=== PATIENT | female | born 1940 | race Asian ===

== ENCOUNTER 2019-02-07 13:46 | Emergency (ER) | payer MEDICARE ==
[2019-02-07] MEDS ORDERED: ASPIRIN 81 MG TABLET, CHEWABLE PO ONE (14:15)
--- NOTE | 2019-02-07 14:15 | ER Document Report ---
ED Medical Screen (RME) - General Chief Complaint: High Blood Pressure Stated Complaint: BLOOD PRESSURE ISSUES Time Seen by Provider: 02/07/19 14:10 Mode of Arrival: Ambulatory Information source: Patient Notes: 78-year-old female presented to ED for complaint of high blood pressure. She just saw the doctor 2 days ago and was started on multiple blood pressure medications and oxybutynin for her bladder. She has a scheduled appointment on Saturday for a physical and blood work. states she got very upset with him today and her blood pressure went higher so he came to the emergency room. Is not taking any of her medications that she has picked up from the pharmacist. She states she had a heavy feeling in her chest for "awhile". She states she told her primary doctor and he is going to send her for a stress test. She states the blood pressure is higher than it has been so they went to the pharmacist and they rechecked the blood pressure and they told her she should go to the emergency room. She states her blood pressure is usually between 150- 175. She states she smokes 3 cigarettes a day, alcohol daily as a wine and 2 cocktails but does not use any illicit drugs. I have greeted and performed a rapid initial assessment of this patient. A comprehensive ED assessment and evaluation of the patient, analysis of test results and completion of medical decision making process will be conducted by an additional ED providers. - Related Data Allergies/Adverse Reactions: No Known Allergies Allergy (Unverified 02/07/19 14:09) Physical Exam - Vital signs Vitals: Temp Pulse Resp BP Pulse Ox 97.8 F 66 16 232/78 H 100 02/07/19 13:48 02/07/19 13:48 02/07/19 13:48 02/07/19 13:48 02/07/19 13:48 Course - Vital Signs Vital signs: Temp Pulse Resp BP Pulse Ox 97.8 F 66 16 232/78 H 100 02/07/19 13:48 02/07/19 13:48 02/07/19 13:48 02/07/19 13:48 02/07/19 13:48
[2019-02-07 15:29] LABS: ABSOLUTE BASOPHILS # (AUTO) 0.1 10^3/uL (0.0-0.2); ABSOLUTE EOSINOPHILS # (AUTO) 0.2 10^3/uL (0.0-0.6); ABSOLUTE LYMPHOCYTES (AUTO) 1.8 10^3/uL (0.5-4.7); ABSOLUTE MONOCYTES (AUTO) 0.3 10^3/uL (0.1-1.4); ABSOLUTE NEUT (AUTO) 4.5 10^3/uL (1.7-8.2); BASOPHILS % (AUTO) 0.9 % (0-2); EOSINOPHILS % (AUTO) 2.9 % (0-6); HEMATOCRIT 37.1 % (36.0-47.0); MEAN CORPUSCULAR HEMOGLOBIN 28.9 pg (27.0-33.4); MEAN CORPUSCULAR HGB CONC 32.4 g/dL (32.0-36.0); MEAN CORPUSCULAR VOLUME 89 fl (80-97); PLATELET COUNT 289 10^3/uL (150-450); RED BLOOD COUNT 4.16 10^6/uL (3.72-5.28); SEGMENTED NEUTROPHILS % (AUTO) 65.2 % (42-78); TOTAL CELLS COUNTED % (AUTO) 100 %; WHITE BLOOD COUNT 6.9 10^3/uL (4.0-10.5)
[2019-02-07 15:36] LABS: ALBUMIN 4.2 g/dL (3.5-5.0); ALKALINE PHOSPHATASE 92 U/L (38-126); ANION GAP 6 (5-19); ASPARTATE AMINO TRANSFERASE 25 U/L (14-36); BILIRUBIN,DIRECT 0.2 mg/dL (0.0-0.4); BILIRUBIN,TOTAL 0.7 mg/dL (0.2-1.3); BLOOD UREA NITROGEN 20 mg/dL (7-20); CALCIUM 9.3 mg/dL (8.4-10.2); CARBON DIOXIDE 30 mmol/L (22-30); CHLORIDE 103 mmol/L (98-107); CREATINE KINASE 116 U/L (30-135); GLUCOSE 106 mg/dL (75-110); POTASSIUM 4.2 mmol/L (3.6-5.0); TOTAL PROTEIN 7.5 g/dL (6.3-8.2)
[2019-02-07 15:47] LABS: CREATINE KINASE MB 1.76 ng/mL (<4.55); NT PRO BNP 282 pg/mL (<450)
[2019-02-07 15:48] LABS: TROPONIN I < 0.012 ng/mL
--- NOTE | 2019-02-07 15:51 | RADIOLOGY REPORT (SQ) ---
EXAM DESCRIPTION: CHEST 2 VIEWS COMPLETED DATE/TIME: 02/07/2019 3:34 pm REASON FOR STUDY: chest pain htn COMPARISON: None. EXAM PARAMETERS: NUMBER OF VIEWS: two views TECHNIQUE: Digital Frontal and Lateral radiographic views of the chest acquired. RADIATION DOSE: NA LIMITATIONS: none FINDINGS: LUNGS AND PLEURA: No opacities, masses or pneumothorax. No pleural effusion. MEDIASTINUM AND HILAR STRUCTURES: 8 cm hiatus hernia. HEART AND VASCULAR STRUCTURES: Heart upper limits of normal size. No evidence for failure. BONES: No acute findings. HARDWARE: None in the chest. OTHER: No other significant finding. IMPRESSION: NO ACUTE RADIOGRAPHIC FINDING IN THE CHEST. TECHNICAL DOCUMENTATION: JOB ID: [id number] 2010 [facility]- All Rights Reserved Reading location - IP/workstation name: [email or web address]
[2019-02-07 16:00] LABS: APPEARANCE,URINE SLIGHTLY-CLOUDY; BILIRUBIN,URINE NEGATIVE (NEGATIVE); COLOR,URINE YELLOW; GLUCOSE, URINE NEGATIVE (NEGATIVE); KETONES,URINE NEGATIVE (NEGATIVE); PROTEIN,URINE NEGATIVE (NEGATIVE); UROBILINOGEN,URINE NEGATIVE mg/dL (<2.0)
[2019-02-07] MEDS ORDERED: ATENOLOL 50 MG TABLET PO ONE (16:18)
[2019-02-07] MEDS ORDERED: LISINOPRIL 10 MG TABLET PO ONE (16:18)
[2019-02-07] MEDS ORDERED: CLONIDINE HCL 0.1 MG TABLET PO ONE (16:19)
--- NOTE | 2019-02-07 17:01 | ER Document Report ---
ED Blood Pressure Problem - General Chief Complaint: High Blood Pressure Stated Complaint: BLOOD PRESSURE ISSUES Time Seen by Provider: 02/07/19 14:10 Primary Care Provider: BLAYNE DE LA CRUZ DO [Primary Care Provider] - Follow up as needed Mode of Arrival: Ambulatory Information source: Patient, Relative - brother Notes: Ms. Ho is a 78-year-old female presenting to the ED for elevated blood pressure. Patient states that she stopped all her medications including multiple blood pressure medications approximately 5 years ago. Over the past 2 to 3 weeks, she is been experiencing pressure to her chest. She denies any actual chest pain but describes it as "a weight on my chest". Patient was finally amenable to seeing a doctor which was a first doctor she had seen in over 2 years after her brother convinced her. She was evaluated and reinitiated on some antihypertensives specifically atenolol, lisinopril and clonidine. Patient's brother went to go tile picker the medications earlier today and when he brought them home to her, she stated that she was not feeling well. After checking her blood pressure at home, they noticed that blood pressure readings were 250 systolic. They are unsure if their home machine was broken so they went to [facility] where they got similar numbers. Patient presenting to the ED for further evaluation of her blood pressure meds. Of note, she did not take any of her oral antihypertensives that were prescribed to her. Patient denies any actual chest pain, shortness of breath, nausea, vomiting or diarrhea. She denies any lower extremity edema. No dyspnea with exertion. Per brother, the patient is scheduled for an outpatient stress test by her primary care doctor. - HPI Patient complains to provider of: High blood pressure - Related Data Allergies/Adverse Reactions: No Known Allergies Allergy (Unverified 02/07/19 14:09) Past Medical History - General Information source: Patient - Social History Smoking Status: Current Every Day Smoker Chew tobacco use (# tins/day): No Frequency of alcohol use: Heavy Family History: Hypertension Patient has suicidal ideation: No Patient has homicidal ideation: No Past Surgical History: Reports: Hx Orthopedic Surgery - Back surgery Review of Systems - Review of Systems Constitutional: No symptoms reported EENT: No symptoms reported Cardiovascular: See HPI Respiratory: See HPI Gastrointestinal: No symptoms reported Genitourinary: No symptoms reported Female Genitourinary: No symptoms reported Musculoskeletal: No symptoms reported Skin: No symptoms reported Hematologic/Lymphatic: No symptoms reported Neurological/Psychological: No symptoms reported Physical Exam - Vital signs Vitals: Temp Pulse Resp BP Pulse Ox 97.8 F 66 16 232/78 H 100 02/07/19 13:48 02/07/19 13:48 02/07/19 13:48 02/07/19 13:48 02/07/19 13:48 Interpretation: Normal - General General appearance: Appears well, Alert - HEENT Head: Normocephalic, Atraumatic Eyes: Normal Pupils: PERRL - Respiratory Respiratory status: No respiratory distress Chest status: Nontender Breath sounds: Normal Chest palpation: Normal - Cardiovascular Rhythm: Regular Heart sounds: Normal auscultation Murmur: No - Abdominal Inspection: Normal Distension: No distension Bowel sounds: Normal Tenderness: Nontender Organomegaly: No organomegaly - Back Back: Normal, Nontender - Extremities General upper extremity: Normal inspection, Nontender, Normal color, Normal ROM, Normal temperature General lower extremity: Normal inspection, Nontender, Normal color, Normal ROM, Normal temperature, Normal weight bearing. No: Carlito's sign - Neurological Neuro grossly intact: Yes Cognition: Normal Orientation: AAOx4 Liberty Coma Scale Eye Opening: Spontaneous Jazz Coma Scale Verbal: Oriented Liberty Coma Scale Motor: Obeys Commands Liberty Coma Scale Total: 15 Speech: Normal Motor strength normal: LUE, RUE, LLE, RLE Sensory: Normal - Psychological Associated symptoms: Normal affect, Normal mood - Skin Skin Temperature: Warm Skin Moisture: Dry Skin Color: Normal Course - Re-evaluation Re-evalutation: She is generally well-appearing and nontoxic. Initial vitals notable for significantly elevated blood pressure with systolics in the 230s. Patient reports systolics to 50s at home. However she has been noncompliant with her anti-hypertensive medication for over 5 years and despite being prescribed these medications and having them filled earlier today. Patient's chest heaviness has been ongoing for several weeks. 02/07/19 17:03 Labs were ordered from triage. Labs including CBC, CMP, troponin, CK, CK-MB and TSH all within normal limits. Chest x-ray also unremarkable. Patient will be given her home dose of antihypertensives as prescribed by her primary care doctor earlier today. Will reassess patient and monitor her blood pressure here in the ED. We will repeat 3-hour troponin. Patient amenable to this plan. If repeat troponin is negative, patient will be discharged with instructions to viridiana dangelojerrell taking her antihypertensives and follow-up with her primary care doctor for outpatient stress test. 02/07/19 18:54 His blood pressure has improved nicely with p.o. antihypertensives. Repeat t roponin is negative. Patient will be discharged with instructions to follow-up with her primary care doctor for outpatient stress test. Patient given return precautions. - Vital Signs Vital signs: Temp Pulse Resp BP Pulse Ox 97.8 F 66 15 130/62 H 100 02/07/19 13:48 02/07/19 13:48 02/07/19 18:01 02/07/19 18:01 02/07/19 18:01 - Laboratory Result Diagrams: 02/07/19 14:55 02/07/19 14:55 Laboratory results interpreted by me: 02/07/19 02/07/19 14:55 15:40 RDW 17.0 H Leukocyte Esterase Rfl LARGE H - Diagnostic Test Radiology reviewed: Image reviewed, Reports reviewed - EKG Interpretation by Me EKG shows normal: Sinus rhythm, [place] Rate: Normal Rhythm: NSR P Waves: LAE Heart block present: 1st Degree When compared to previous EKG there are: Previous EKG unavailable Discharge - Discharge Clinical Impression: Poorly-controlled hypertension, Noncompliance with medication regimen, Elevated blood pressure reading in office with diagnosis of hypertension Condition: Good Disposition: HOME, SELF-CARE Instructions: High Blood Pressure, Requiring Treatment ([facility]), High Blood Pressure ([facility]), Beta Blockers ([facility]) Additional Instructions: It is important that you regularly take your blood pressure medications as prescribed. Do not skip any doses. I would recommend that you keep a blood pressure diary and write down a daily blood pressure both in the morning as well as at nighttime. Bring this to your primary care doctor the next time you are evaluated to see if any changes need to be made to your blood pressure medications. If you develop chest pain, shortness of breath, or any other concerning symptoms, please return to the emergency department for further ev aluation. Forms: Elevated Blood Pressure Referrals: BLAYNE DE LA CRUZ DO [Primary Care Provider] - Follow up as needed
[2019-02-07 18:23] LABS: PROTHROMBIN TIME 13.2 SEC (11.4-15.4)
[2019-02-07 18:24] LABS: PARTIAL THROMBOPLASTIN TIME 31.2 SEC (23.5-35.8)
[2019-02-07 19:12] VITALS: BP 117/55
--- NOTE | 2019-02-08 01:10 | EKG REPORT ---
SEVERITY:- ABNORMAL ECG - SINUS RHYTHM PROBABLE LEFT ATRIAL ABNORMALITY PROBABLE LEFT VENTRICULAR HYPERTROPHY : Confirmed by: Korey Aquino MD 08-Feb-2019 01:09:40
== END 2019-02-07 19:18 | disposition home or self-care (01) ==
LOC: ER 13:46
DX: I10 Essential (primary) hypertension (principal); F17.200 Nicotine dependence, unspecified, uncomplicated; Z91.14 Patient's other noncompliance with medication regimen
CPT/HCPCS: 93005; 36415; 87086; 82553; 82550; 83735; 84443; 85025; 85610; 85730; 80053; 81001; 84484; 83880; 71046; 93010; A9270 ×4; 99284

== ENCOUNTER → 2019-02-12 | Outpatient (CLI) | payer MEDICARE ==
--- NOTE | 2019-02-12 14:29 | RADIOLOGY REPORT (SQ) ---
EXAM DESCRIPTION: CT HEAD WITHOUT COMPLETED DATE/TIME: 02/12/2019 1:28 pm REASON FOR STUDY: SEVERE DIZZINESS (R42) R42 DIZZINESS AND GIDDINESS COMPARISON: None. TECHNIQUE: Axial images acquired through the brain without intravenous contrast. Images reviewed wi th bone, brain and subdural windows. Additional sagittal and coronal reconstructions were generated. Images stored on PACS. All CT scanners at this facility use dose modulation, iterative reconstruction, and/or weight based d osing when appropriate to reduce radiation dose to as low as reasonably achievable (ALARA). [facility]: Dose Right [facility]: CareDose [facility]: Dose Right [facility]: Teradose 4D [facility]: [employer] RADIATION DOSE: CT Rad equipment meets quality standard of care and radiation dose reduction techniq ues were employed. CTDIvol: 48.6 mGy. DLP: 954 mGy-cm. mGy. LIMITATIONS: None. FINDINGS: VENTRICLES: Normal size and contour. CEREBRUM: No masses. No hemorrhage. No midline shift. No evidence for acute infarction. Normal gra y/white matter differentiation. No areas of low density in the white matter. CEREBELLUM: No masses. No hemorrhage. No alteration of density. No evidence for acute infarction. EXTRAAXIAL SPACES: No fluid collections. No masses. ORBITS AND GLOBE: No intra- or extraconal masses. Normal contour of globe without masses. CALVARIUM: No fracture. PARANASAL SINUSES: No fluid or mucosal thickening. SOFT TISSUES: No mass or hematoma. OTHER: No other significant finding. IMPRESSION: NORMAL BRAIN CT WITHOUT CONTRAST. EVIDENCE OF ACUTE STROKE: NO. COMMENT: Quality ID # [id number]: Final reports with documentation of one or more dose reduction techniques (e.g., Automated exposure control, adjustment of the mA and/or kV according to patient size, use of iterative reconstruction technique) TECHNICAL DOCUMENTATION: JOB ID: [id number] [employer]- All Rights Reserved Reading location - IP/workstation name: [email or web address]
== END ==
LOC: RAD 13:17
PROVIDERS: ATTEND Family Medicine
DX: R42 Dizziness and giddiness (principal)
CPT/HCPCS: 70450

== ENCOUNTER → 2019-02-17 | Outpatient (CLI) | payer MEDICARE | LOC: OD 16:36 | PROVIDERS: ATTEND Physician Assistant | DX: R06.00 Dyspnea, unspecified (principal) | CPT/HCPCS: 36415; 83880 ==

== ENCOUNTER → 2019-02-19 | Outpatient (CLI) | payer MEDICARE ==
--- NOTE | 2019-02-19 09:05 | WOMENS IMAGING REPORT ---
EXAM DESCRIPTION: BONE DENSITY HIP/SPINE COMPLETED DATE/TIME: 02/19/2019 8:54 am REASON FOR STUDY: M81.0 M81.0 AGE-RELATED OSTEOPOROSIS W/O CURRENT PATHOLOGICAL FRAC COMPARISON: None. TECHNIQUE: Dual-Energy X-ray Absorptiometry (DEXA) of the AP Spine, Hip, and Forearm. LIMITATIONS: None. FINDINGS: HIP: The bone mineral density (BMD) measured in the left hip correlates with a T-score of -1.4, which is o steopenia as defined by the World Health Organization. BMD Change vs Baseline: N/A FOREARM: The bone mineral density (BMD) measured in the left forearm correlates with a T-score of -1.3 which i s osteopenia as defined by the World Health Organization. BMD Change vs Baseline: N/A 10 year Fracture Risk Assessment: Major Osteoporotic Fracture: 13%. Hip Fracture: 4.3%. IMPRESSION: 1. HIP WHO CLASSIFICATION: OSTEOPENIA. 2. FOREARM WHO CLASSIFICATION: OSTEOPENIA. OVERALL ASSESSMENT: WHO CLASSIFICATION: OSTEOPENIA. COMMENT: The World Health Organization defines low BMD as follows: T-score: Normal: Greater than -1.0 Osteopenia: Between -1.0 and -2.5 Osteoporosis: Less than -2.5 without fractures Established osteoporosis: Less than -2.5 with fractures In general, you may wish to consider: Diagnosis Treatment Follow-up DEXA Normal BMD Prevention 2-3 years Osteopenia Prevention/Therapy 1-2 years Osteoporosis Therapy Yearly TECHNICAL DOCUMENTATION: JOB ID: [id number] [employer]- All Rights Reserved Reading location - IP/workstation name: [email or web address]
== END ==
LOC: WI 08:44
PROVIDERS: ATTEND Family Medicine
DX: M81.0 Age-related osteoporosis without current pathological fracture (principal)
CPT/HCPCS: 77080

== ENCOUNTER → 2019-03-17 | Outpatient (CLI) | payer MEDICARE | LOC: OD 11:12 | PROVIDERS: ATTEND Physician Assistant | DX: R06.00 Dyspnea, unspecified (principal) | CPT/HCPCS: 36415; 83880 ==

== ENCOUNTER → 2019-03-18 | Outpatient (CLI) | payer MEDICARE ==
[2019-03-18 12:45] LABS: ANION GAP 10 (5-19); BLOOD UREA NITROGEN 23 mg/dL (7-20); CALCIUM 9.4 mg/dL (8.4-10.2); CARBON DIOXIDE 29 mmol/L (22-30); CHLORIDE 103 mmol/L (98-107); GLUCOSE 97 mg/dL (75-110); POTASSIUM 3.7 mmol/L (3.6-5.0)
== END ==
LOC: OD 11:18
PROVIDERS: ATTEND Physician Assistant
DX: I10 Essential (primary) hypertension (principal); R06.00 Dyspnea, unspecified
CPT/HCPCS: 36415; 80048; 83880

== ENCOUNTER → 2019-11-05 | Outpatient (CLI) | payer MEDICARE ==
[2019-11-05 11:14] LABS: HEMATOCRIT 33.2 % (36.0-47.0); HEMOGLOBIN 10.6 g/dL (12.0-15.5); MEAN CORPUSCULAR HEMOGLOBIN 26.4 pg (27.0-33.4); MEAN CORPUSCULAR HGB CONC 31.9 g/dL (32.0-36.0); MEAN CORPUSCULAR VOLUME 83 fl (80-97); PLATELET COUNT 312 10^3/uL (150-450); RED BLOOD COUNT 4.02 10^6/uL (3.72-5.28); RED CELL DISTRIBUTION WIDTH 16.2 % (11.5-14.0); WHITE BLOOD COUNT 6.5 10^3/uL (4.0-10.5)
[2019-11-05 11:30] LABS: ALBUMIN 4.1 g/dL (3.5-5.0); ALKALINE PHOSPHATASE 86 U/L (38-126); ANION GAP 5 (5-19); ASPARTATE AMINO TRANSFERASE 21 U/L (14-36); BILIRUBIN,DIRECT 0.1 mg/dL (0.0-0.4); BILIRUBIN,TOTAL 0.6 mg/dL (0.2-1.3); BLOOD UREA NITROGEN 20 mg/dL (7-20); CARBON DIOXIDE 29 mmol/L (22-30); CHLORIDE 106 mmol/L (98-107); CHOLESTEROL 135.13 mg/dL (0-200); GLUCOSE 120 mg/dL (75-110); POTASSIUM 4.5 mmol/L (3.6-5.0); TOTAL PROTEIN 7.4 g/dL (6.3-8.2); TRIGLYCERIDES 151 mg/dL (<150)
[2019-11-05 11:42] LABS: DIRECT LDL 54 mg/dL (<100)
[2019-11-05 11:47] LABS: VLDL CHOLESTEROL 30.2 mg/dL (10-31)
== END ==
LOC: OD 09:38
PROVIDERS: ATTEND Internal Medicine Cardiovascular Disease
DX: E78.5 Hyperlipidemia, unspecified (principal); R07.9 Chest pain, unspecified; I10 Essential (primary) hypertension; R06.00 Dyspnea, unspecified; R00.2 Palpitations; Z79.899 Other long term (current) drug therapy
CPT/HCPCS: 36415; 80048; 80061; 80076; 83880; 85027

== ENCOUNTER → 2020-03-10 | Outpatient (CLI) | payer MEDICARE ==
[2020-03-10 12:15] LABS: ALBUMIN 3.9 g/dL (3.5-5.0); ALKALINE PHOSPHATASE 85 U/L (38-126); ANION GAP 7 (5-19); ASPARTATE AMINO TRANSFERASE 20 U/L (14-36); BILIRUBIN,TOTAL 0.5 mg/dL (0.2-1.3); BLOOD UREA NITROGEN 30 mg/dL (7-20); CALCIUM 9.2 mg/dL (8.4-10.2); CARBON DIOXIDE 28 mmol/L (22-30); CHLORIDE 106 mmol/L (98-107); GLUCOSE 119 mg/dL (75-110); POTASSIUM 4.5 mmol/L (3.6-5.0); TOTAL PROTEIN 7.1 g/dL (6.3-8.2); TRIGLYCERIDES 102 mg/dL (<150)
[2020-03-10 12:26] LABS: DIRECT LDL 41 mg/dL (<100)
== END ==
LOC: OD 10:40
PROVIDERS: ATTEND Physician Assistant
DX: I10 Essential (primary) hypertension (principal); E78.5 Hyperlipidemia, unspecified; R06.00 Dyspnea, unspecified; Z79.899 Other long term (current) drug therapy
CPT/HCPCS: 36415; 80048; 80061; 80076; 83880